=== PATIENT | male | born 2000 | race Caucasian/White ===

== ENCOUNTER 2023-06-24 18:59 | Emergency (ER) | payer SELFPAY ==
[2023-06-24 19:05] VITALS: BP 142/79; PULSE 95; RESP 18; TEMP 36.6; O2SAT 99; BMI 39.1
--- NOTE | 2023-06-24 19:21 | ED.GENADULT ---
HPI - General Adult General Date Seen: 06/24/23 Chief complaint: Skin/Abscess/Foreign Body Stated complaint: R leg, possible infection Time Seen by Provider: 06/24/23 19:09 Source: patient Mode of arrival: ambulatory Limitations: no limitations History of Present Illness HPI narrative: Patient is a 23-year-old here for evaluation of right leg redness. He tells me that on Saturday, he had developed redness swelling and pain of his right kneecap. He had leftover Keflex of his girlfriend's, and so he has been taking those 3 times a day. He said initially the redness and swelling had resolved and his kneecap. Today however he came home from work about 4 hours ago and noted that his entire right lower leg and even into his thigh was red. He does not have pain but noted that it was warm. He has not had any fevers or systemic complaints. He has taken a total of 11 doses of the Keflex. He does note that this happened with his ankle of few months ago, he also treated that with Keflex and it resolved. He has a small pustule on his knee from he thinks a bug bite. General health is good, no allergies. Related Data Home Medications Medication Instructions Recorded Confirmed No Known Home Medications 06/24/23 06/24/23 Allergies Allergy/AdvReac Type Severity Reaction Status Date / Time No Known Drug Allergies Allergy Verified 06/24/23 19:07 Review of Systems Status of ROS: Reports: 6 or more systems reviewed and unremarkable except as noted in History and below [facility] Social History Smoking Status: Light tobacco smoker Do you use any of these nicotine containing products: Smokeless Tobacco How often do you have a drink containing alcohol: 2-4 times a month How often do you have six or more drinks on one occasion: Monthly AUDIT-C Alcohol total score: 4 Non-prescribed substance use: denies use Exam Narrative: Exam Narrative: Vital signs as noted above. In general, an alert, well-appearing patient. Head: Normocephalic, atraumatic. Eyes: Pupils are equal reactive. Extraocular movements are full. Conjunctivae are normal. ENT: Mucous membranes are moist. Throat is normal. Neck: Supple without lymphadenopathy. Heart: Regular rate and rhythm. No murmur or rub. Lungs: Clear bilaterally. No increased work of breathing, crackles or wheezes. Abdomen: Soft and nontender. No organomegaly. Extremities: Examination of the right lower extremity shows a small scabbed lesion on the knee. There is some erythema surrounding that, there is no effusion, free range of motion of the knee itself. He has erythema extending up the medial and lateral thigh, as well as down the medial and lateral calf. These areas are somewhat warm, there is a little bit of edema noted on the right lower extremity as well. There is no fluctuance or tenderness. No discrete rash. Distal CMS is normal. Pulses intact. Neurologic: Patient is alert and oriented to person and place. Speech is fluent. Face is symmetric. Moves all extremities equally. Affect: Normal. Skin: Warm and dry. Well perfused. Const: Vital Signs, click to edit/add: Vital Signs - 24 hr 06/24/23 19:05 06/24/23 19:56 Temperature 97.8 F Pulse Rate [Right Pulse Oximeter] 95 108 H Respiratory Rate 18 Blood Pressure [Ri ght Upper Arm] 142/79 H 143/99 H Pulse Oximetry 99 98 Oxygen Delivery Me thod Room Air Room Air Documenting provider has reviewed patient's vital signs: yes Course Course Hospital Course: Patient presents with erythema of his leg in the somewhat patchy distribution. This does not look overly suggestive of DVT. History is most suggestive of infection not responding to Keflex, though at this time he does not have pain in the leg. He does not have a fever, does not complain of systemic complaints. Nontoxic in appearance. No evidence of a purulent infection. Nonetheless, I have recommended that we draw some baseline labs in case we need to trend anything, a give a shot of Rocephin, and switch him to something that provide some MRSA coverage. Then I would recommend close outpatient follow-up and return for any worsening. This does not look like probably an allergic reaction given that it is so localized to the leg. Labs are notable for mildly elevated CRP of 4. White count is normal. Metabolic panel is unremarkable. I am discharging him home on doxycycline with instructions to return for any worsening. Primary care follow-up in a couple of days for recheck unless he is significantly improved. Vital Signs Vital signs: Initial Vital Signs Temperature 97.8 F 06/24/23 19:05 Temperature Source Temporal Artery Scan 06/24/23 19:05 Pulse Rate 95 06/24/23 19:05 Respiratory Rate 18 06/24/23 19:05 Blood Pressure 142/79 H 06/24/23 19:05 Blood Pressure Mean 100 06/24/23 19:05 Blood Pressure Position Sitting 06/24/23 19:05 Pulse Oximetry 99 06/24/23 19:05 Oxygen Delivery Method Room Air 06/24/23 19:05 Vital Signs Temperature 97.8 F 06/24/23 19:05 Pulse Rate 95 06/24/23 19:05 Respiratory Rate 18 06/24/23 19:05 Blood Pressure 142/79 H 06/24/23 19:05 Pulse Oximetry 99 06/24/23 19:05 Oxygen Delivery Method Room Air 06/24/23 19:05 Temperature 97.8 F 06/24/23 19:05 Pulse Rate 108 H 06/24/23 19:56 Respiratory Rate 18 06/24/23 19:05 Blood Pressure 143/99 H 06/24/23 19:56 Pulse Oximetry 98 06/24/23 19:56 Oxygen Delivery Method Room Air 06/24/23 19:56 Medical Decision Making Lab Data Labs: Lab Results 06/24/23 Range/Units 19:33 WBC 10.44 (4.50-11.00) K/uL RBC 4.44 (4.30-5.90) m/uL Hgb 12.9 L (13.5-17.5) gm/dL Hct 37.5 (37.0-53.0) % MCV 85 (80-100) fL MCH 29 (26-34) pg MCHC 34 (32-36) gm/dL RDW Coeff of Meliton 11.7 (11.5-15.5) % Plt Count 243 (140-440) K/uL Neut % (Auto) 59.2 (42.0-72.0) % Lymph % (Auto) 28.2 (20-44) % [place] % (Auto) 9.7 (0.0-11.0) % Eos % (Auto) 2.1 (0.0-7.0) % Baso % (Auto) 0.2 (0.0-3.0) % Neut # (Auto) 6.19 (1.7-7.0) K/uL Lymph # (Auto) 2.94 H (0.90-2.90) K/uL [place] # (Auto) 1.00 H (0.00-0.90) K/UL Eos # (Auto) 0.22 (0.00-0.50) K/uL Baso # (Auto) 0.02 (0.00-0.30) K/uL Abs Immat Gran (auto) 0.06 (0.00-0.30) K/uL Imm/Tot Granulo (auto) 0.6 % Sodium 138 (135-149) mmol/L Potassium 3.9 (3.6-5.1) mmol/L Chloride 105 (96-114) mmol/L Carbon Dioxide 23 (20-32) mmol/L Anion Gap 10 (7-15) mEq/L BUN 15 (5-24) mg/dL Creatinine 0.9 (0.5-1.5) mg/dL Estimated Creat Clear 135.96 Estimated GFR 123 ml/min Glucose 116 H (60-115) mg/dL Calcium 9.7 (8.4-10.6) mg/dL C-Reactive Protein 4.3 H (0.5-1.0) mg/dL Discharge Plan Discharge Clinical Impression: Cellulitis Patient Disposition: Home, Self-Care Condition: Stable Instructions: Cellulitis (ED) Additional Instructions: Antibiotic as prescribed. If you have significantly worsening redness, significant swelling, fevers, severe pain, vomiting, or other worsening, return to the emergency department at any time. Note that sometimes over the 1st 24 hours the redness may get mildly worse as the antibiotic 1st kicks in. Recheck with primary care in a couple of days unless significantly improved. Prescriptions: No Action No Known Home Medications Stand Alone Forms: [employer] Info Instructions
[2023-06-24 19:44] LABS: Basophils Absolute Auto 0.02 K/uL (0.00-0.30); Basophils Percent Auto 0.2 % (0.0-3.0); Eosinophils Absolute Auto 0.22 K/uL (0.00-0.50); Eosinophils Percent Auto 2.1 % (0.0-7.0); Hematocrit 37.5 % (37.0-53.0); Hemoglobin* 12.9 gm/dL (13.5-17.5); Immature Granulocytes Abs Auto 0.06 K/uL (0.00-0.30); Immature Granulocytes Pct Auto 0.6 %; Lymphocytes Absolute Auto 2.94 K/uL (0.90-2.90); Lymphocytes Percent Auto 28.2 % (20-44); Mean Corpuscular HGB Conc 34 gm/dL (32-36); Mean Corpuscular Hemoglobin 29 pg (26-34); Mean Corpuscular Volume 85 fL (80-100); Monocytes Percent Auto 9.7 % (0.0-11.0); Neutrophils Absolute Auto 6.19 K/uL (1.7-7.0); Neutrophils Percent Auto 59.2 % (42.0-72.0); Platelet Count* 243 K/uL (140-440); RDW Coefficient of Variation % 11.7 % (11.5-15.5); Red Blood Count 4.44 m/uL (4.30-5.90); White Blood Count* 10.44 K/uL (4.50-11.00)
[2023-06-24 19:48] LABS: Slide Review Reflex No
[2023-06-24] MEDS: cefTRIAXone 1 GM VIAL IM (19:50)
[2023-06-24] MEDS: LIDOCAINE 1% 5 ml (pf) 5 ML VIAL 2.1 ML IM (19:50)
[2023-06-24 19:56] VITALS: BP 143/99; PULSE 108; O2SAT 98
[2023-06-24 20:01] LABS: Chloride* 105 mmol/L (96-114)
[2023-06-24 20:02] LABS: Potassium* 3.9 mmol/L (3.6-5.1); Sodium* 138 mmol/L (135-149)
[2023-06-24 20:04] LABS: Creatinine* 0.9 mg/dL (0.5-1.5); Est. Creatinine Clearance* 135.96; Estimated Glomerular Filt Rate 123 ml/min
[2023-06-24 20:05] LABS: Anion Gap 10 mEq/L (7-15); Blood Urea Nitrogen* 15 mg/dL (5-24); Calcium* 9.7 mg/dL (8.4-10.6); Carbon Dioxide* 23 mmol/L (20-32); Glucose* 116 mg/dL (60-115)
[2023-06-24 20:08] LABS: C Reactive Protein* 4.3 mg/dL (0.5-1.0)
[2023-06-24 20:32] VITALS: BP 144/82; PULSE 92; RESP 18; TEMP 36.6; O2SAT 97
--- NOTE | 2023-06-24 20:33 | ED.NURSE ---
Pt is A & Ox4, denies pain. Understand discharge instructions given to him.
== END 2023-06-24 20:32 | disposition home or self-care (01) ==
PROVIDERS: Emergency Provider Emergency Medicine
DX: L03.115 Cellulitis of right lower limb (principal)
CPT/HCPCS: 36415; 80048; 85025; 86140; 87040; 96372; 99284; J0696